=== PATIENT | female | born 1975 | race Caucasian/White ===

== ENCOUNTER 2022-11-29 08:14 | Day surgery (SDC) | payer BC ==
[~2022-11-29] VITALS: Ht 162.6 cm; Wt 98.6 kg
[2022-11-29] VITALS (9 sets, daily range): BP systolic 116–138; BP diastolic 56–90; PULSE 60–67; RESP 11–16; O2SAT 95–100
[2022-11-29] MEDS ORDERED: SEMA2PEN (08:25)
[2022-11-29] MEDS ORDERED: DESMOPRESSIN IV ONE (09:10)
[2022-11-29] MEDS ORDERED: NORMAL SALINE IV ONE (09:10)
[2022-11-29] MEDS ORDERED: MIDAZolam 1 MG/ML 5ML VIAL ONE (11:16)
[2022-11-29] MEDS ORDERED: fentaNYL/PF 50MCG/1 ML 2ML syringe ONE ×2 (11:16→11:42)
[2022-11-29] MEDS ORDERED: LIDOcaine Viscous 15ml cup ONE (11:17)
== END 2022-11-29 13:26 | disposition home or self-care (01) ==
LOC: GI LAB 08:14
PROVIDERS: ATTEND Internal Medicine Gastroenterology
DX: R10.33 Periumbilical pain (principal); R14.0 Abdominal distension (gaseous); R19.4 Change in bowel habit; R10.30 Lower abdominal pain, unspecified; D68.00 Von Willebrand disease, unspecified; E11.9 Type 2 diabetes mellitus without complications; Z98.890 Other specified postprocedural states; Z90.710 Acquired absence of both cervix and uterus; Z87.891 Personal history of nicotine dependence; Z88.0 Allergy status to penicillin; Z88.1 Allergy status to other antibiotic agents; Z88.8 Allergy status to other drugs, medicaments and biological substances; Z79.899 Other long term (current) drug therapy
CPT/HCPCS: 43239; 45378; 99152; 99153; J2250; J2597; J3010; J3490; J7030; Z7512; A4620